=== PATIENT | female | born 1955 | race Caucasian/White ===

== ENCOUNTER 2022-01-02 09:21 | Outpatient (CLI) | payer MEDICARE, OTHER, SELFPAY ==
[2022-01-02 14:19] LABS: Chloride* 102 mmol/L (96-114); Potassium* 4.3 mmol/L (3.6-5.1); Sodium* 141 mmol/L (135-149)
[2022-01-02 14:21] LABS: Creatinine* 0.8 mg/dL (0.5-1.5); Estimated Glomerular Filt Rate 81 ml/min
[2022-01-02 14:22] LABS: Blood Urea Nitrogen* 24 mg/dL (7-30); Calcium* 9.6 mg/dL (8.4-10.6); Carbon Dioxide* 31 mmol/L (20-32); Glucose* 103 mg/dL (60-115)
[2022-01-02 16:05] LABS: TSH With Reflex to FT4* 0.501 uIU/mL (0.270-4.200)
== END 2022-01-02 09:22 | disposition home or self-care (01) ==
PROVIDERS: PCP Emergency Medicine; Visit Provider Emergency Medicine
DX: Z01.419 Encounter for gynecological examination (general) (routine) without abnormal findings (principal); I10 Essential (primary) hypertension; E03.9 Hypothyroidism, unspecified
CPT/HCPCS: 80048; 84443

== ENCOUNTER 2023-02-12 10:33 | Outpatient (CLI) | payer MEDICARE, SELFPAY | END 2023-02-12 10:34 | disposition home or self-care (01) | LOC: NFLDREF 02-19 15:22 | PROVIDERS: PCP Emergency Medicine; Referring Provider Emergency Medicine; Visit Provider Emergency Medicine | DX: Z00.00 Encounter for general adult medical examination without abnormal findings (principal); I10 Essential (primary) hypertension; R73.03 Prediabetes; E03.9 Hypothyroidism, unspecified; Z13.820 Encounter for screening for osteoporosis; K21.9 Gastro-esophageal reflux disease without esophagitis; Z13.6 Encounter for screening for cardiovascular disorders | CPT/HCPCS: 80048; 80061; 82607; 84443 ==

== ENCOUNTER 2023-05-29 09:50 | Outpatient (CLI) | payer MEDICARE, SELFPAY | END 2023-05-29 09:51 | disposition home or self-care (01) | LOC: NFLDREF 06-02 08:21 | PROVIDERS: PCP Emergency Medicine; Referring Provider Emergency Medicine; Visit Provider Emergency Medicine | DX: E03.9 Hypothyroidism, unspecified (principal) | CPT/HCPCS: 84443 ==

== ENCOUNTER 2023-07-29 11:05 | Outpatient (CLI) | payer MEDICARE, SELFPAY ==
--- NOTE | 2023-07-29 11:30 | CRLHL7_ITS ---
For Patients: As a result of the Cures Act, medical imaging exams and procedure reports are released immediately into your electronic medical record. You may view this report before your referring provider. If you have questions, please contact your health care provider. BILATERAL DIGITAL SCREENING MAMMOGRAM WITH COMPUTER-AIDED DETECTION AND TOMOSYNTHESIS 07/25/2023 CLINICAL HISTORY: Routine screening exam. COMPARISON: None. TECHNIQUE: Digital mammogram in CC and MLO projections including computer-aided detection (CAD). Tomosynthesis was used in this interpretation. BREAST COMPOSITION: Scattered fibroglandular densities. FINDINGS: RIGHT Breast: Focal nodular density lateral breast 9 cm from the nipple. LEFT Breast: No suspicious findings. IMPRESSION: RIGHT breast asymmetry/mass. RECOMMENDATIONS: Additional mammographic views of the RIGHT breast including 3D spot compression CC/MLO. RIGHT breast ultrasound may also be required. A member of the radiology staff will be contacting the patient to arrange for this additional study. BI-RADS Category 0: Incomplete: Need Additional Imaging Evaluation and/or Prior Mammograms for Comparison Dictated by Davis Garcia MD @ 07/29/2023 11:38:05 AM JAMSHID/saima DW/Dictated by: Davis Garcia MD @ 07/29/2023 11:38:00 AM (Electronically Signed)
== END 2023-07-29 11:06 | disposition home or self-care (01) ==
LOC: MAMMO 11:07
PROVIDERS: PCP Emergency Medicine; Visit Provider Emergency Medicine
DX: Z12.31 Encounter for screening mammogram for malignant neoplasm of breast (principal); N63.10 Unspecified lump in the right breast, unspecified quadrant
CPT/HCPCS: 77063; 77067

== ENCOUNTER 2023-08-13 08:04 | Outpatient (CLI) | payer MEDICARE, SELFPAY ==
--- NOTE | 2023-08-13 08:45 | CRLHL7_ITS ---
For Patients: As a result of the Cures Act, medical imaging exams and procedure reports are released immediately into your electronic medical record. You may view this report before your referring provider. If you have questions, please contact your health care provider. DIGITAL DIAGNOSTIC RIGHT MAMMOGRAM USING TOMOSYNTHESIS AND COMPUTER-AIDED DETECTION RIGHT BREAST ULTRASOUND CLINICAL HISTORY: RIGHT breast mass/asymmetry. COMPARISON: 07/29/2023. TECHNIQUE: Digital RIGHT mammogram in two projections with computer-aided detection. Tomosynthesis was used in this interpretation. Real-time ultrasound imaging of RIGHT breast with imaging documentation. BREAST COMPOSITION: There are areas of scattered fibroglandular density. FINDINGS: 3D spot compression CC/MLO RIGHT breast mammogram images submitted. Persistent nodular density is present within the upper outer quadrant. No architectural distortion. No suspicious calcifications. Targeted RIGHT breast ultrasound performed at 10 o`clock 9 cm from the nipple. In this location, there is a benign intramammary lymph node with normal central fatty hilum and normal internal vascularity. This lymph node measures 7 x 6 x 6 millimeters. No cortical thickening. IMPRESSION: Benign intramammary lymph node RIGHT breast 10 o`clock 9 cm from the nipple measuring 7 millimeters. No suspicious findings. RECOMMENDATIONS: Annual bilateral screening mammography. Results and recommendations discussed with the patient. BI-RADS Category 2: Benign A lay language report of this examination will be provided to the patient. Dictated by Davis Garcia MD @ 08/13/2023 9:40:08 AM jj/Dictated by: Davis Garcia MD @ 08/13/2023 9:40:00 AM (Electronically Signed)
--- NOTE | 2023-08-13 09:15 | CRLHL7_ITS ---
For Patients: As a result of the Cures Act, medical imaging exams and procedure reports are released immediately into your electronic medical record. You may view this report before your referring provider. If you have questions, please contact your health care provider. PLEASE SEE DIGITAL DIAGNOSTIC RIGHT MAMMOGRAM PERFORMED SAME DAY CRL:[email or web address] foster/Dictated by: Davis Garcia MD @ 08/13/2023 9:40:00 AM (Electronically Signed)
== END 2023-08-13 08:05 | disposition home or self-care (01) ==
LOC: MAMMO 08:04
PROVIDERS: PCP Emergency Medicine; Visit Provider Emergency Medicine
DX: N63.10 Unspecified lump in the right breast, unspecified quadrant (principal); R92.8 Other abnormal and inconclusive findings on diagnostic imaging of breast
CPT/HCPCS: 76642; 77065; G0279

== ENCOUNTER 2023-11-13 10:16 | Outpatient (CLI) | payer MEDICARE, OTHER, SELFPAY ==
--- NOTE | 2023-11-13 11:11 | W.ANESCHARGE ---
Anesthesia Charges Start Date/Time Anesthesia Start Date: 11/13/23 Anesthesia Start Time: 10:53 Stop Date/Time Anesthesia Stop Date: 11/13/23 Anesthesia Stop Time: 11:10
--- NOTE | 2023-11-13 12:38 | W.ANESCHARGE ---
Anesthesia Charges Start Date/Time Anesthesia Start Date: 11/13/23 Anesthesia Start Time: 10:53 Stop Date/Time Anesthesia Stop Date: 11/13/23 Anesthesia Stop Time: 11:10
== END 2023-11-13 10:17 | disposition home or self-care (01) ==
LOC: OP CLINIC 10:17
PROVIDERS: PCP Emergency Medicine; Visit Provider Surgery
DX: K21.9 Gastro-esophageal reflux disease without esophagitis (principal); K44.9 Diaphragmatic hernia without obstruction or gangrene; K22.89 Other specified disease of esophagus; K31.89 Other diseases of stomach and duodenum
CPT/HCPCS: 00731; 43239; 88305; J2704

== ENCOUNTER 2024-02-12 11:52 | Outpatient (CLI) | payer MEDICARE, OTHER, SELFPAY | END 2024-02-12 11:53 | disposition home or self-care (01) | LOC: LKVREF 11:54 | PROVIDERS: PCP Emergency Medicine; Visit Provider Emergency Medicine | DX: I10 Essential (primary) hypertension (principal); Z01.818 Encounter for other preprocedural examination | CPT/HCPCS: 80048 ==

== ENCOUNTER 2024-02-19 08:35 | Outpatient (CLI) | payer MEDICARE, OTHER, SELFPAY | END 2024-02-19 08:36 | disposition home or self-care (01) | LOC: RAD 08:37 | PROVIDERS: PCP Emergency Medicine; Visit Provider Emergency Medicine | DX: R94.31 Abnormal electrocardiogram [ECG] [EKG] (principal); I51.7 Cardiomegaly | CPT/HCPCS: 93306 ==

== ENCOUNTER 2024-03-04 17:18 | Outpatient (CLI) | payer MEDICARE, OTHER, SELFPAY | END 2024-03-04 17:19 | disposition home or self-care (01) | LOC: NFLDREF 03-14 10:32 | PROVIDERS: PCP Emergency Medicine; Referring Provider Emergency Medicine; Visit Provider Physician Assistant | DX: R35.0 Frequency of micturition (principal) | CPT/HCPCS: 87086 ==

== ENCOUNTER 2024-05-27 11:18 | Outpatient (CLI) | payer MEDICARE, OTHER, SELFPAY | END 2024-05-27 11:19 | disposition home or self-care (01) | LOC: NFLDREF 06-01 04:53 | PROVIDERS: PCP Emergency Medicine; Referring Provider Emergency Medicine; Visit Provider Emergency Medicine | DX: E03.9 Hypothyroidism, unspecified (principal); Z13.6 Encounter for screening for cardiovascular disorders | CPT/HCPCS: 80061; 84443 ==

== ENCOUNTER 2024-07-13 13:15 | Outpatient (CLI) | payer MEDICARE, SELFPAY | END 2024-07-13 13:16 | disposition home or self-care (01) | LOC: NFLDREF 07-16 04:17 | PROVIDERS: PCP Emergency Medicine; Referring Provider Emergency Medicine | DX: R39.15 Urgency of urination (principal) | CPT/HCPCS: 87086 ==

== ENCOUNTER 2024-12-09 08:12 | Outpatient (CLI) | payer MEDICARE, SELFPAY | END 2024-12-09 08:13 | disposition home or self-care (01) | LOC: NFLDREF 12-20 09:26 | PROVIDERS: Visit Provider Physician Assistant Medical | DX: K62.89 Other specified diseases of anus and rectum (principal) | CPT/HCPCS: 87172 ==